=== PATIENT | female | born 1940 | race Caucasian/White ===

== ENCOUNTER → 2017-07-30 | Outpatient (CLI) | payer MEDICARE, OTHER ==
[~2017-07-30] MED LIST: CLARITIN10 MG PO; COMPAZINE10 MG PO; KLOR-CON 1010 MEQ PO; LOSARTAN-HCTZ1 EAC1 PO; NICOTINE TRANSD14 M1 TRANSDERM; ONDANSETRON HCL4 M2 PO; XARELTO15 MG PO; ZYPREXA 10 MG T10 MG PO
== END ==
LOC: M.RAD 13:42
DX: Z12.31 Encounter for screening mammogram for malignant neoplasm of breast (principal); N63.42 Unspecified lump in left breast, subareolar; N63.20 Unspecified lump in the left breast, unspecified quadrant

== ENCOUNTER → 2017-07-31 | Outpatient (CLI) | payer MEDICARE, OTHER | END | disposition home or self-care (01) | LOC: M.ULTRA 12:47 | DX: C50.912 Malignant neoplasm of unspecified site of left female breast (principal); R92.1 Mammographic calcification found on diagnostic imaging of breast; I10 Essential (primary) hypertension; Z98.49 Cataract extraction status, unspecified eye; Z87.19 Personal history of other diseases of the digestive system; Z79.899 Other long term (current) drug therapy; Z98.890 Other specified postprocedural states ==

== ENCOUNTER → 2017-08-08 | Outpatient (CLI) | payer MEDICARE, OTHER ==
--- NOTE | 2017-08-23 23:16 | CON ---
[address] [address] CONSULTATION Name: ALEM NAVARRO Room: [facility]#: [id number] Admission: 08/08/17 Attend Phys: Calixto Workman MD Discharge: Date of : 42 Report #: [id number] THIS REPORT FOR: //name// CC: Indra Juárez DO Stanton Ferrera DO Karen Connors DO Calixto Potter MD DATE OF CONSULTATION: 08/08/2017 [facility] phone: [phone] REFERRING PHYSICIANS: 1. Stanton Ferrera MD 2. Sheila Potter MD 3. Karen Connors DO 4. 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 HISTORY OF PRESENT ILLNESS: Over the last 2-3 months, the patient was feeling a palpable mass around the 12 o'clock position of the left breast. Her last mammogram, prior to feeling the breast mass, was many years ago. She denied having any nipple discharge. She had a bilateral mammogram on 07/30/2017 which revealed an ovoid density in the superior central aspect of the left breast and she had some small benign appearing nodular opacities in the upper outer right breast. There was nothing to suggest a malignancy in the right breast, but she did have an irregular mass density in the superior central left breast. She then ended up having an ultrasound of the left breast on 07/30/2017 which revealed a hypoechoic mass measuring about 1.3 cm x 1.9 cm x 2.2 cm in the left breast. She ended up having a biopsy of that mass on 07/31/2017 and that revealed an infiltrating ductal carcinoma, which was high grade. It spanned 1.1 cm. It was estrogen receptor negative, progesterone receptor negative and HER2/marie negative. She presents to discuss treatment options. PAST MEDICAL HISTORY AND PAST SURGICAL HISTORY: Includes hypertension. She had cataract repair. She has a history of hemorrhoids. MEDICATIONS: Losartan. ALLERGIES: PENICILLIN. FAMILY HISTORY: [place] [address] CONSULTATION Name: LACHOMICHEALALEM Ocampo Carol Room: [facility]#: [id number] Admission: 08/08/17 Attend Phys: Calixto Workman MD Discharge: Date of : 42 Report #: [id number] SOCIAL HISTORY: The patient is retired. She is . She has 2 daughters and 1 son. Ethanol: she says she occasionally drinks alcohol containing beverages. Cigarettes: The patient smoked 1 pack per day for about 60 years. REVIEW OF SYSTEMS: GENERAL: The patient denied having any fevers or chills. SKIN: The patient denied having color changes or itching. LYMPH NODES: The patient denied having enlarged or painful glands in the neck. ENDOCRINE: The patient denied having any hot or cold intolerance. HEMATOLOGY/IMMUNOLOGY: The patient denied having any anemia or recent bleeding. MUSCULOSKELETAL: The patient denied having any arthritis or painful swollen joints. HEAD AND NECK: The patient denied having any headaches, migraines. RESPIRATORY: The patient denied having shortness of breath. CARDIOVASCULAR: The patient denied having palpitations. GASTROINTESTINAL: The patient denied having nausea, vomiting. NEUROLOGIC: The patient denied having focal weakness. PHYSICAL EXAMINATION: With my nurse, Bel Whaley, present: VITAL SIGNS: Height: 5 feet 5 inches. Weight 136.6 pounds. Blood Pressure 143/75. Pulse 73. Respiration 20 Oxygen saturation 96% on room air. GENERAL: The patient was alert, oriented, in no acute distress. EYES: Pupils were equal, round, reactive to light and accommodation. Extraocular movements were intact. MOUTH: Had no visible lesions. HEART: Had a regular rate and rhythm without murmur. LUNGS: were clear to auscultation. BREASTS: Left breast had a palpable mass at the 12 o'clock position measuring about 2.5 cm. x 2.2 cm x 1.5 cm. HEART: Had a regular rate and rhythm without murmur. LUNGS: were clear to auscultation. ABDOMEN: Not tender. Spleen was not palpable. Liver was at the costal margin. EXTREMITIES: Had no clubbing, cyanosis or edema. NEUROLOGIC: Cranial nerves II to XII were intact. Sensation was intact. She had 4/5 strength in her extremities. ASSESSMENT AND PLAN: The patient has findings consistent with at least an early stage breast cancer. The patient was told that her local treatment options include breast conservation therapy versus mastectomy. This is based on the NSABP B-06 study which randomized patients with early breast cancer between total mastectomy versus lumpectomy alone versus lumpectomy and radiation therapy. At 20 years followup, there was no significant difference in overall survival. The addition of radiation therapy to lumpectomy, reduced the local failure rate from 39% to 14%. The patient has an appointment with her medical oncologist, Dr. Potter, on 08/14/2017. The patient says she has an appointment in the near future with her surgeon as well. I went ahead and ordered lab work in about a month and I asked the patient to follow up with me afterwards. I told her that radiation therapy in this case would be a standard part of breast conservation therapy. I told her, that if she has a mastectomy, then radiation therapy is used to treat patient's [place] [address] CONSULTATION Name: ALEM NAVARRO Room: [facility]#: [id number] Admission: 08/08/17 Attend Phys: Calixto Workman MD Discharge: Date of : 42 Report #: [id number] local recurrence such as those that have axillary lymph nodes involved with breast cancer or have positive margins or have tumors that are greater than 5 cm on the pathologic sample. So the risks, benefits and logistics of radiation therapy were explained to the patient in detail. Right now, she is leaning towards breast conservation therapy if she is still a candidate by the time she is evaluated by the surgeon. she has lab work ordered in about a month and she was asked to schedule a follow up appointment with me afterwards. Thank you very much for this consult. <ELECTRONICALLY SIGNED> By: Calixto Workman MD 08/23/17 2316 1133 1700Dajody Workman MD /nt
== END ==
LOC: M.RTH 05:41
DX: C50.912 Malignant neoplasm of unspecified site of left female breast (principal); I10 Essential (primary) hypertension; F17.210 Nicotine dependence, cigarettes, uncomplicated

== ENCOUNTER → 2017-08-13 | Outpatient (CLI) | payer MEDICARE, OTHER ==
[2017-08-13 08:10] LABS: CREATININE 0.8 mg/dL (0.6-1.3)
== END ==
LOC: M.LAB 07:29 → M.MRI 08:30 → M.LAB 13:30
PROVIDERS: Surgery
DX: R92.8 Other abnormal and inconclusive findings on diagnostic imaging of breast (principal)

== ENCOUNTER → 2017-08-19 | Outpatient (CLI) | payer MEDICARE, OTHER | LOC: M.LAB 01:42 | DX: R35.8 Other polyuria (principal) ==

== ENCOUNTER → 2017-08-19 | Outpatient (CLI) | payer MEDICARE, OTHER ==
--- NOTE | 2017-08-19 12:46 | 2DMMODE ---
[place] [address] 2 D/M-MODE ECHOCARDIOGRAM Name: ALEM NAVARRO Room: [facility]#: [id number] Admission: 08/19/17 Attend Phys: Sheila Potter MD Discharge: Date of : 42 Date of Service: 08/19/17 1246 Report #: [id number] THIS REPORT FOR: //name// APPROVED REPORT Study performed: 08/19/2017 09:54:27 EXAM: Comprehensive 2D, Doppler, and color-flow Echocardiogram Patient Location: Out-Patient BSA: 1.67 HR: 67 bpm BP: 130/82 mmHg Other Information Study Quality: Good Indications Pre-Chemo 2D Dimensions LVEF(%): 64.24 (>50%) IVSd: 10.33 (7-11mm) LVOT Diam: 21.84 (18-24mm) LVDd: 38.69 mm PWd: 7.70 (7-11mm) Ascending Ao: 30.85 (22-36mm) LVDs: 25.36 (25-40mm) Aortic Root: 31.71 mm Barillas's LVEF: 64.24 % Volumes Left Atrial Volume (Systole) LA ESV Index: 29.20 mL/m2 Aortic Valve AoV Peak Song.: 1.12 m/s AO Peak Gr.: 5.06 mmHg LVOT Max P.80 mmHg AO Mean Gr.: 3.02 mmHg LVOT Mean P.39 mmHg LVOT Max V: 0.84 m/s AO V2 VTI: 23.17 cm LVOT Mean V: 0.54 m/s MEE (VTI): 3.12 cm2 LVOT V1 VTI: 19.26 cm Mitral Valve E/A Ratio: 0.60 MV Decel. Time: 482.76 ms MV E Max Song.: 0.49 m/[place] [address] 2 D/M-MODE ECHOCARDIOGRAM Name: ALEM NAVARRO Room: [facility]#: [id number] Admission: 08/19/17 Attend Phys: Sheila Potter MD Discharge: Date of : 42 Date of Service: 08/19/17 1246 Report #: [id number] MV PHT: 140.00 ms MVA (PHT): 1.57 cm2 TDI E/Lateral E': 5.44 E/Medial E': 6.13 Medial E' Song.: 0.08 m/s Lateral E' Song.: 0.09 m/s Pulmonary Valve PV Peak Song.: 0.71 m/s PV Peak Gr.: 2.00 mmHg Tricuspid Valve RAP Estimate: 5.00 mmHg TR Peak Gr.: 24.87 mmHg RVSP: 29.87 mmHg PA Pressure: 29.87 mmHg Left Ventricle The left ventricle is normal size. There is normal LV segmental wall motion. There is normal left ventricular wall thickness. Left ventricular systolic function is normal. The left ventricular ejection fraction is within the normal range. LVEF is 60-65%. Grade I - abnormal relaxation pattern. Right Ventricle The right ventricle is normal size. The right ventricular systolic function is normal. Atria The left atrium size is normal. The right atrium size is normal. Aortic Valve Mild aortic valve sclerosis. No aortic regurgitation is present. There is no aortic valvular stenosis. Mitral Valve The mitral valve is normal in structure. Trace mitral regurgitation. No evidence of mitral valve stenosis. Tricuspid Valve The tricuspid valve is normal in structure. Mild tricuspid regurgitation. Pulmonic Valve The pulmonary valve is normal in structure. Mild [place] [address] 2 D/M-MODE ECHOCARDIOGRAM Name: ALEM NAVARRO Room: [facility]#: [id number] Admission: 08/19/17 Attend Phys: Sheila Potter MD Discharge: Date of : 42 Date of Service: 08/19/17 1246 Report #: [id number] Great Vessels The aortic root is normal in size. IVC is normal in size and collapses with >50% inspiration Pericardium There is no pericardial effusion. <Conclusion> The left ventricle is normal size. There is normal left ventricular wall thickness. Left ventricular systolic function is normal. The left ventricular ejection fraction is within the normal range. LVEF is 60-65%. Grade I - abnormal relaxation pattern. The right ventricle is normal size. The left atrium size is normal. Mild aortic valve sclerosis. No aortic regurgitation is present. There is no aortic valvular stenosis. The mitral valve is normal in structure. The tricuspid valve is normal in structure. Mild tricuspid regurgitation. IVC is normal in size and collapses with >50% inspiration There is no pericardial effusion. There is normal LV segmental wall motion. <ELECTRONICALLY SIGNED> By: Alphonse Ramirez MD, FACC 08/19/17 1246 [id number] Alphonse Ramirez MD, FACC /INF
== END ==
LOC: M.CRD 09:39
DX: C50.919 Malignant neoplasm of unspecified site of unspecified female breast (principal); Z17.1 Estrogen receptor negative status [ER-]

== ENCOUNTER 2017-09-03 16:55 | Inpatient (IN) | payer MEDICARE, OTHER ==
[~2017-09-03] VITALS: Ht 165.1 cm; Wt 65.3 kg
[2017-09-03 17:02] VITALS: BP 136/55
[2017-09-03] MEDS ORDERED: KLOR-CON 1010 MEQ PO (17:09)
[2017-09-03] MEDS ORDERED: ONDANSETRON HCL4 M2 PO (17:09)
[2017-09-03] MEDS ORDERED: LOSARTAN-HCTZ1 EAC1 PO (17:09)
[2017-09-03] MEDS ORDERED: COMPAZINE10 MG PO (17:11)
[2017-09-03] MEDS ORDERED: ZYPREXA 10 MG T10 MG PO (17:11)
[2017-09-03] MEDS ORDERED: CLARITIN10 MG PO (17:12)
[2017-09-03 17:38] LABS: HEMATOCRIT 32.9 % (37.0-47.0); HEMOGLOBIN 11.7 gm/dL (12.0-15.0); MCH 32.1 pg (26.0-34.0); MCHC 35.5 g/dL (28.0-37.0); MCV 90.6 fL (80.0-100.0); MPV 7.5 fl. (7.2-11.1); NUCLEATED RBCS 0 /100WBC; PLATELET COUNT* 187 thou/uL (150-400); RBC 3.64 mil/uL (4.20-5.00); RDW-CV 12.1 % (10.5-14.5)
[2017-09-03 17:46] LABS: APTT 31.4 Seconds (25.0-31.3)
[2017-09-03 17:47] LABS: WBC 1.3 thou/uL (4.0-11.0)
[2017-09-03 17:55] LABS: ANION GAP 7 mmol/L (7-16); BUN 12 mg/dL (7-18); CALCIUM 7.8 mg/dL (8.5-10.1); CHLORIDE 87 mmol/L (98-107); CO2 27 mmol/L (21-32); CREATININE 0.6 mg/dL (0.6-1.3); GLUCOSE 187 mg/dL (70-99); SODIUM 121 mmol/L (136-145)
[2017-09-03 18:06] LABS: ALBUMIN 2.9 g/dL (3.4-5.0); ALKALINE PHOSPHATASE 74 U/L (46-116); NT-PRO BRAIN NAT PEPTIDE 547 pg/mL (<300); SGOT 11 U/L (15-37); SGPT 15 U/L (30-65); TOTAL BILIRUBIN 0.5 mg/dL (<0.1-1.0); TOTAL PROTEIN 6.1 g/dL (6.4-8.2); TROPONIN-I LEVEL <0.06 ng/mL (<0.06)
[2017-09-03 18:25] LABS: ABSOLUTE LYMPHOCYTES 0.1 thou/uL (0.8-5.3); ABSOLUTE MONOCYTES 0.2 thou/uL (0.0-1.2)
[2017-09-03 18:26] LABS: PLATELET ESTIMATE ADEQUATE
[2017-09-03 19:51] LABS: URINE BILIRUBIN NEGATIVE (Negative); URINE BLOOD 2+ (Negative); URINE CLARITY CLEAR; URINE COLOR YELLOW; URINE GLUCOSE-RANDOM NEGATIVE (Negative); URINE KETONES NEGATIVE (Negative); URINE LEUKOCYTES-REFLEX NEGATIVE (Negative); URINE PROTEIN NEGATIVE (Negative); URINE SPECIFIC GRAVITY <= 1.005 (1.005-1.030); URINE UROBILINOGEN 0.2 E.U./dl (0.2-1.0)
[2017-09-03 19:59] LABS: URINE NITRITE-REFLEX POSITIVE (Negative)
[2017-09-03 20:11] LABS: SQUAMOUS 4-10 Moderate /LPF (0-3)
[2017-09-03 20:12] LABS: BACTERIA-REFLEX >30 Many /HPF (None Seen); CASTS None Seen /LPF (None Seen); CRYSTALS None Seen /LPF (None Seen); URINE RBC 3-10 Few /HPF (0-2); URINE WBC-REFLEX 0-5 Rare /HPF (0-5)
[2017-09-03 20:14] VITALS: BP 89/56
[2017-09-03 20:30] VITALS: BP 98/65
[2017-09-04] VITALS (7 sets, daily range): BP systolic 83–122; BP diastolic 45–76
--- NOTE | 2017-09-04 06:53 | NUR ---
PATIENT RESTED IN BED, NO ACUTE CHANGES. PATIENT DID NOT SHOW SIGNS OF DISTRESS. PATIENT STATES SHE DOES NOT HAVE ANY PAIN, ALSO DECREASE DIARRHEA. DOCTOR NOTIFIED OF SOFT BLOOD PRESSURES, AND ULTRA SOUND, LOVENOX ORDERED. FALL PRECAUTIONS IN PLACE, BED ALARM ON, CALL LIGHT WITHIN REACH, HOURLY ROUNDING OBSERVED.
--- NOTE | 2017-09-04 08:23 | NUR ---
CALL TO DOCTOR SELINA REGARDING ISOLATION ORDER, NO NEW ORDERS.
--- NOTE | 2017-09-04 09:59 | NUR ---
ASSUMED CARE OF PT THIS AM AROUND 0715- [employer] DISPATCHER IN PLACE ORDERED, TRACING SR- UPON ASSESSMENT PT NOTED TO BE SITTING UP ON SIDE OF BED EATING BREAKFAST, GOOD PO INTAKE NOTED- PT A&O X4- CONTINENT OF BOWEL AND BLADDER- SBA WITH TRANSFERS FOR SAFETY- LCTA, RESP EVEN AND UN-LABORED- VSS, O2 SAT 97% ON RA- ABDOMEN SOFT/ROUND/NON-TENDER, BS X4 QUADS- PT REPORTS LAST BM 09/03/17- TRACE EDEMA NOTED TO BLE- IV NOTED TO RIGHT AC INTACT, IVF INFUSING PRESCIBED- IV ABT GIVEN THIS AM PRESCIBED, NO ADVERSE REACTIONS NOTED-K+ CURRENLTY BEING REPLACED PER PROTOCOL- PT DENIES ANY C/O PAIN/DISCOMFORT AT THIS TIME- CALL LIGHT AND PERSONAL BELONGINGS WITH IN REACH- HOURLY ROUNDS IN PLACE R/T SAFETY/NEEDS- ALL NEEDS MET AT THIS TIME- WCTM
--- NOTE | 2017-09-04 11:00 | NUR ---
MET WITH PT TO DISCUSS HOME SITUATION/DC PLANNING. PT LIVES WITH SPOUSE. STATES SHE JUST STARTED CHEMO AND HAD HER FIRST [place] WEEK BEFORE LAST, SEEMS DISCOURAGED WITH SIDE EFFECTS AND NOW HOSPITAL STAY, STATES 'THIS IS THE FIRST THING I'VE EVER HAD.' SUPPORT GIVEN. PT STATES SHE IS INDEPENDENT AND NORMALLY ACTIVE. SPOUSE IS DPOA. WILL FOLLOW
[2017-09-04 16:51] LABS: POTASSIUM 3.4 mmol/L (3.5-5.1)
--- NOTE | 2017-09-04 16:57 | NUR ---
PT ROSEANNA RESTING IN BED, [facility] ART HISTORIAN IN PLACE ORDERED, TRACING SR- IV TO LEFT AC INTACT, IVF INFUSING PRESCIBED- GOOD PO INTAKE NOTED THIS SHIFT WITH MEALS- ID CONSULTED THIS SHIFT R/T FEVERS- ORDERS FOR ZOFRAN OBTAINED PER DR.BANDAY COKER GIVEN PER PT REQUEST R/T NAUSEA THIS SHIFT AT 1305, PT REPORTS MEDICATION TO BE EFFECTIVE- K+ REPLACED PER PROTOCOL, REDRAW NOTED AT 3.4- NA+ NOTED WITH IMPROVEMENT TO 130 THIS SHIFT-PT DENIES ANY C/O PAIN/DISCOMFORT AT THIS TIME- ALL NEEDS MET AT THIS TIME-WCTM
[2017-09-05] VITALS: BP 105/58
[2017-09-05 04:00] VITALS: BP 105/58
--- NOTE | 2017-09-05 05:25 | NUR ---
PATIENT RESTED IN BED, NO ACUTE CHAGNES. PATIENT DID NOT SHOW SIGNS OF DISTRESS. NO COMPLAINTS OF NAUSEA. FALL PRECAUTIONS IN PLACE, BED ALARM ON, CALL LIGHT WITH IN REACH, HOURLY ROUNDING OBSERVED.
[2017-09-05 05:29] LABS: HEMATOCRIT 34.2 % (37.0-47.0); HEMOGLOBIN 12.1 gm/dL (12.0-15.0); MCH 32.3 pg (26.0-34.0); MCHC 35.3 g/dL (28.0-37.0); MCV 91.4 fL (80.0-100.0); MPV 8.1 fl. (7.2-11.1); RBC 3.75 mil/uL (4.20-5.00); RDW-CV 12.3 % (10.5-14.5)
[2017-09-05 05:44] LABS: CALCIUM 7.9 mg/dL (8.5-10.1); CREATININE 0.6 mg/dL (0.6-1.3)
--- NOTE | 2017-09-05 06:43 | CON ---
[address] [address] CONSULTATION Name: ALEM NAVARRO Room: [address] IN .R.#: [id number] Admission: 09/03/17 Attend Phys: Alessandra Calvert Discharge: Date of : 42 Report #: [id number] THIS REPORT FOR: //name// CC: Stanton Witt DATE OF SERVICE: 09/04/2017 ATTENDING PHYSICIAN: Dr. Witt. REASON FOR EVALUATION: Neutropenia and diarrhea. HISTORY OF PRESENT ILLNESS: Chart reviewed, patient examined. This is a 77-year-old with history of breast cancer. She has been on chemotherapy who had experienced what she felt was constipation as an adverse drug effect, was given medicines to reverse it, experienced diarrhea and it was quite marked and persisted. There is no evidence of associated abdominal pain or nausea nor has she had any fevers. She denies any pulmonary related complaints. On evaluation, she was found to have neutropenia. She was admitted. Chest x-ray was otherwise unrevealing. Lactic acid of 1.6. CT of abdomen and pelvis, there has been multiple renal masses likely simple cysts and possible early pancreatitis. Urinalysis, 0-5 white cells. Blood cultures collected at the time of admission are sterile thus far. She was empirically placed on cefepime and metronidazole. She is not overtly ill at this point and not encephalopathic. ALLERGIES: LISTED TO PENICILLINS. MEDICINES: Include above-noted antibiotics, enoxaparin and nicotine patch. PAST MEDICAL HISTORY: As described above, history of hypertension, previous partial hysterectomy and hemorrhoids. SOCIAL HISTORY: Smokes [id number] history. No ethanol and no illicit drug use. FAMILY HISTORY: Noncontributory. REVIEW OF SYSTEMS: As above. PHYSICAL EXAMINATION: GENERAL: She is pleasant, alert and cooperative. She does appear chronically ill, although not acutely distressed. VITAL SIGNS: Temperature 98.1, pulse 78, respirations 16 and blood pressure is 118/73. SKIN: Warm, dry [place] [address] CONSULTATION Name: ALEM NAVARRO Room: [address] IN [facility]#: [id number] Admission: 09/03/17 Attend Phys: Alessandra Calvert Discharge: Date of : 42 Report #: [id number] HEENT: Unremarkable. NECK: Supple. LUNGS: Somewhat diminished, otherwise clear. HEART: Regular. I do not appreciate any murmur. ABDOMEN: Mildly distended, although it is soft. There are no peritoneal signs. GENITOURINARY: Deferred. RECTAL: Deferred. LABORATORY DATA: As described above. Blood cultures are sterile thus far. Urinalysis 0-5 white cells and greater than [address] abdomen and pelvis as noted. CBC: White count of 1.3 with an ANC of 1000. Sodium is low at 121 that is actually up from, I believe, 115, potassium is 3.0, chloride 87, bicarbonate is 27, BUN and creatinine 12 and 0.6 and glucose of 187. Albumin 2.9 and total protein 6.1. Liver functions are unremarkable. Venous Dopplers showed some short segment of left greater saphenous vein thrombosis. ASSESSMENT: Neutropenia associated with chemotherapy and now diarrhea may well be a response to aggressive efforts to reverse constipation. At this point, she does not appear toxic. I think it is reasonable to continue combination empiric therapy at this point. As the white count increases, may further define any sort of focal inflammatory site perhaps pyogenic infection. At this point, I would monitor expectantly, particular concerned about pneumonitis, gastrointestinal related or she has a port in place as well. <ELECTRONICALLY SIGNED> By: Damien Andino MD 09/05/17 0643 [id number] [id number] Andino MD /nt
[2017-09-05 07:58] VITALS: BP 119/73
--- NOTE | 2017-09-05 09:30 | NUR ---
ASSUMED CARE OF PT THIS AM AROUND 0715- AIRLINE RESERVATION AGENT IN PLACE ORDERED, TRACING SR- UPON ASSESSMENT PT NOTED TO BE RESTING IN BED, WATCHING TV- PT A&O X4- CONTINENT OF BOWEL AND BLADDER- SBA WITH TRANSFERS FOR PT SAFETY- LCTA, DIMINISHED IN BASES- RESP EVEN AND [id number], O2 SAT 96% ON RA-ABDOMEN SOFT/ROUND/NON-TENDER, BS X4 QUADS- PT REPORTED LAST BM X3 DAYS AGO, BUT PASSING GAS- GOOD PO INTAKE NOTED THIS AM WITH BREAKFAST- IV NOTED TO LEFT FA INTACT, IVF INFUSING PRESCIBED- IV CEFEPIME AND FLAGYL D/CD THIS AM PER - BLOOD CULTURES REMAIN NEGATIVE- PT DENIES ANY C/O PAIN/DISCOMFORT AT THIS TIME- CALL LIGHT AND PERSONAL BELONGINGS WITH IN REACH- HOURLY ROUNDS IN PLACE R/T SAFETY/NEEDS- ALL NEEDS MET AT THIS TIME-WCTM
[2017-09-05 11:35] VITALS: BP 117/77
--- NOTE | 2017-09-05 11:59 | CON ---
[address] [address] CONSULTATION Name: ALEM NAVARRO Room: [address] IN .R.#: [id number] Admission: 09/03/17 Attend Phys: Alessandra Calvert Discharge: Date of : 42 Report #: [id number] THIS REPORT FOR: //name// CC: Stanton Witt DATE OF SERVICE: 09/04/2017 REASON FOR CONSULTATION: Breast cancer, hyponatremia, neutropenia. REQUESTING PHYSICIAN: Ariana Witt MD HISTORY OF PRESENT ILLNESS: The patient is a very pleasant 77-year-old woman who is receiving neoadjuvant chemotherapy for triple negative breast cancer. She received first cycle of Adriamycin and Cytoxan 10 days ago. She developed severe constipation. She did not have bowel movements for 5 days and said that she uses many laxatives, enema and milk of magnesia. She started having diarrhea. [facility] with the above-mentioned complaints. She had labs done, which showed severe hyponatremia with sodium of 115. She was admitted to the hospital. She did have diarrhea after laxatives which lasted her until admission. Oncology consultation requested. She is doing better today. She says diarrhea has stopped. She does not have fevers or chills, although she is on antibiotics for neutropenia. She had the last Neulasta day #2 of chemotherapy. She has complaints of left lower extremity swelling. Doppler ultrasound was done, which showed DVT. She does not have nausea or vomiting. PAST MEDICAL HISTORY: Significant for breast cancer. Otherwise, she is healthy. SOCIAL HISTORY: Does not smoke. Her performance status is very good. ECOG 0. FAMILY HISTORY: Disregard. REVIEW OF SYSTEMS: CONSTITUTIONAL: No recent weight loss. HEENT: No mouth sores. CARDIOVASCULAR: No chest pain or palpitation. RESPIRATORY: Negative. GASTROINTESTINAL: See above. GENITOURINARY: No dysuria or frequency. MUSCULOSKELETAL: See above. NEUROLOGIC: Negative. MENTAL STATUS: Negative. PHYSICAL EXAMINATION: [place] [address] CONSULTATION Name: ALEM NAVARRO Room: [address]#: [id number] Admission: 09/03/17 Attend Phys: Alessandra Calvert Discharge: Date of : 42 Report #: [id number] GENERAL: Reveals a well-developed, well-nourished female, not in acute distress. VITAL SIGNS: Blood pressure 106/62, heart rate is 77, temperature 98.3, respirations 18. HEENT EXAMINATION: Does not reveal thrush. HEART: Normal S1, S2. LUNGS: Clear. ABDOMEN: Soft. No organomegaly. EXTREMITIES: Shows mild left lower extremity edema. MENTAL STATUS: Alert, oriented x 3. LYMPHATICS: There is no supraclavicular lymphadenopathy. LABORATORY DATA: White count 1.3, hemoglobin 11.7, platelets 187, neutrophils of 76%, monocytes 16%. Sodium 121, potassium is 2.0, BUN 12, creatinine 0.6. Ultrasound shows DVT in the left lower extremity. There is a clot in a short segment of greater saphenous vein. CT of the abdomen shows multiple kidney masses consistent with cysts. There is peripancreatic fat stranding, possibly related to pancreatitis. ASSESSMENT AND PLAN: 1. Diarrhea secondary to laxative, gastrogenic resolved. 2. Neutropenia. The patient is on Cefepime. Checked CBC tomorrow morning. If neutropenia resolved, recommend to discontinue antibiotics. 3. Hyponatremia, most likely secondary to diarrhea. Agree with IV hydration. 4. Deep venous thrombosis. Consider on Xarelto. 5. Peripancreatic stranding. I do not think this is any clinical significance. I would not pursue further workup for this. 6. Breast cancer. Day #10 of cycle of chemotherapy. We will continue chemotherapy without any changes at this point. Thank you very much for allowing me to participate in the care of this patient. <ELECTRONICALLY SIGNED> By: Sheila Potter MD 09/05/17 1159 1628 [id number] Potter MD /nt
--- NOTE | 2017-09-05 12:31 | EKG ---
[place] [address] ELECTROCARDIOGRAM REPORT Name: YANFREDDYALEM Ocampo Room: [address] IN [facility].#: [id number] Admission: 09/03/17 Attend Phys: Alessandra Calvert Discharge: Date of : 42 Report #: [id number] THIS REPORT FOR: //name// [facility] ED Test Date: 2017-09-03 Test Time: 17:07:12 Pat Name: ALEM NAVARRO Department: Room: Gender: Health Care Administrator: Reynold BOONE : 1940 Requested By: Fernando Delarosa Order Number: [id number] MD: Sha Choi Measurements Intervals [place] Rate: 89 P: -27 IA: 173 QRS: 19 QRSD: 87 T: 26 QT: 367 QTc: 447 Interpretive Statements Sinus rhythm No previous ECG available for comparison Electronically Signed On 09-05-2017 12:31:23 CDT by Sha Choi [email or web address] <ELECTRONICALLY SIGNED> By: Sha Choi MD, [facility] 09/05/17 1231 06 06 Sha Choi MD, FAC /EPI
[2017-09-05] MEDS ORDERED: XARELTO15 MG PO (13:06)
[2017-09-05 14:03] VITALS: BP 117/77
--- NOTE | 2017-09-05 14:25 | NUR ---
CONTINUE TO FOLLOW, MET WITH PT AND DTR. PT HOPEFUL TO GO HOME, STATES FEELING MUCH IMPROVED TODAY. GAVE DISCOUNT NO COPAY CARD FOR 1ST MONTH OF XARELTO. PT DECLINES ANY OTHER F/U, ANXIOUS TO GO HOME
[2017-09-05] MEDS ORDERED: NICOTINE TRANSD14 M1 TRANSDERM (15:28)
--- NOTE | 2017-09-05 15:49 | NUR ---
ORDERS RECIEVED FOR OKAY TO D/C HOME THIS SHIFT PER WITH FOLLOW UP'S DIRECTED WITH ONCOLOGY AND PCP-IV TO LEFT FA D/C'D ALONG WITH PROCESS MAINTENANCE TECHNICIAN PRIOR TO D/C- D/C TEACHING/EDUCATION GIVEN TO PT PRIOR TO D/C WITH ALL QUESTIONS AND CONCERNS ADDRESSED- WRITTEN SCRIPTS WITH WRITTEN EDUCATION PROVIDED TO PT PRIOR TO D/C- BELONGINGS PACKED AND ACCOUNTED FOR PER PT- PT ESCORTED PER TECH VIA W/C WITH BELONGINGS; AT SIDE TO VEHICLE- NO PROBLEMS TO NOTE AT TIME OF D/C OF 1550
== END 2017-09-05 15:50 | disposition home or self-care (01) | DRG 872 ==
LOC: M.ERS 16:55 → M.2W 18:22 → M.TBA-ER 18:22 → M.2W 19:52
PROVIDERS: Family Medicine; ADMIT Internal Medicine
DX: A41.9 Sepsis, unspecified organism (principal); I82.4Y2 Acute embolism and thrombosis of unspecified deep veins of left proximal lower extremity; K52.1 Toxic gastroenteritis and colitis; E87.1 Hypo-osmolality and hyponatremia; L03.116 Cellulitis of left lower limb; N39.0 Urinary tract infection, site not specified; E44.1 Mild protein-calorie malnutrition; T47.4X5A Adverse effect of other laxatives, initial encounter; I10 Essential (primary) hypertension; F17.210 Nicotine dependence, cigarettes, uncomplicated; D70.1 Agranulocytosis secondary to cancer chemotherapy; E87.6 Hypokalemia; E83.42 Hypomagnesemia; E86.0 Dehydration; T45.1X5A Adverse effect of antineoplastic and immunosuppressive drugs, initial encounter; Y92.89 Other specified places as the place of occurrence of the external cause; Z85.3 Personal history of malignant neoplasm of breast; Z92.21 Personal history of antineoplastic chemotherapy; Z90.710 Acquired absence of both cervix and uterus; Z79.899 Other long term (current) drug therapy; Z88.0 Allergy status to penicillin; Z88.5 Allergy status to narcotic agent

== ENCOUNTER → 2018-02-13 | Day surgery (SDC) | payer MEDICARE, OTHER ==
[~2018-02-13] MED LIST changes: +NORCO 5-325 TA1 EACH PO
[2018-02-13 09:13] LABS: HEMOGLOBIN 12.1 gm/dL (12.0-15.0); MCH 31.6 pg (26.0-34.0); MCHC 33.7 g/dL (28.0-37.0); MCV 93.7 fL (80.0-100.0); MPV 6.7 fl. (7.2-11.1); RBC 3.84 mil/uL (4.20-5.00); RDW-CV 16.7 % (10.5-14.5); WBC 10.5 thou/uL (4.0-11.0)
[2018-02-13 09:32] LABS: CALCIUM 8.7 mg/dL (8.5-10.1); CREATININE 0.6 mg/dL (0.6-1.3); POTASSIUM 3.8 mmol/L (3.5-5.1)
[2018-02-13 09:36] LABS: ALBUMIN 3.5 g/dL (3.4-5.0); TOTAL BILIRUBIN 0.6 mg/dL (<0.1-1.0); TOTAL PROTEIN 6.9 g/dL (6.4-8.2)
--- NOTE | 2018-02-18 13:09 | PATH ---
[address] [address] PATHOLOGY RPT PROCEDURE Name: ALEM NAVARRO Room: [facility]#: [id number] Admission: 02/13/18 Date of : 42 Discharge: Report #: [id number] Path Case #: [id number] [facility] Accession Number: [id number] . 01 Material submitted: . PART A: LEFT BREAST MASS PART B: SENTINEL LYMPH NODE LEFT PART C: TATE CATH RIGHT . 01 Clinical history: . Malignant neoplasm of unspecified site of left breast . A. Vector margin marker carbajal as follows: Anterior - green, inferior - blue, lateral - orange, medial - yellow, posterior - black, superior - red. . C. Gross only. . 02 Diagnosis: A. Left breast mass: - Breast tissue with evidence of presurgical therapy including nodular fibrosis with focal histiocytic infiltrate and no residual malignancy or atypia. - Medial calcification of blood vessels and luminal calcifications. See comment. . B. Left sentinel lymph node: - One benign lymph node, without evidence of prior lymph node metastasis (no fibrous scarring). . C. Gross diagnosis (right port-a-cath): - Port-A-Cath identified. QTP/02/17/2018 . 02 Comment: Properly controlled keratin AE1/AE3 performed on B1 shows no evidence of metastatic tumor. . This patient received neoadjuvant chemotherapy following a left breast biopsy around 07/31/2017 which showed high-grade ductal carcinoma, triple negative ([id number]). (PAN:shirley/naomi 02/17/2018) . 02 Electronically signed: . Javan Rodriguez MD, Pathologist NPI- [id number] . 01 Gross description: [place] [address] PATHOLOGY RPT PROCEDURE Name: ALEM NAVARRO Carol Room: [facility]#: [id number] Admission: 02/13/18 Date of : 42 Discharge: Report #: [id number] Path Case #: [id number] A. Received in formalin labeled "Alem Navarro, left breast mass" is a previously inked and oriented breast lumpectomy specimen weighing 28 g and measuring 7.0 cm from superior to inferior, 4.8 cm from medial to lateral, and 2.0 cm from anterior to posterior. The specimen is inked as follows: Superior-red, inferior-blue, anterior green, posterior-black, lateral-orange, medial-yellow. The specimen is serially sectioned from superior to inferior into 15 slices. Present within slice 8 is a lewis-white firm mass measuring 0.8 x 0.8 x 0.5 cm. The mass is located to the margins as follows: 3.5 cm to superior, 3.0 cm to inferior, 2.8 cm to lateral, 1.0 cm to medial, 0.8 cm to anterior, and 0.7 cm to posterior. A biopsy clip is not grossly identified. The uninvolved breast parenchyma is yellow-lewis and lobulated with dense white fibrous tissue in the inferior aspect. Also present within the container is a separate unoriented portion of yellow-lewis lobulated breast tissue measuring 2.2 x 1.6 x 1.0 cm. The external surface is inked black. Upon sectioning, the cut surface is yellow-lewis and homogeneous without abnormalities. Tube Bender Hand sections of the specimen are submitted as follows: A1 slice 1, superior margin, perpendicular sections A2-A3 slice 5 A4-A6 slice 6 A7-A8 slice 7 A9-A10 slice 8 A11-A12 slice 9 A13 slice 15, inferior margin, perpendicular sections A14 truck sales representative separate portion of tissue The specimen is removed from the patient at 1122 and placed in formalin at 1133 on February 13, 2018. The specimen is removed from formalin at 1850 on February 15, 2018. . B. Received in formalin labeled "Srikanth Luoice, sentinel lymph node left" is a 1.6 x 1.0 x 0.6 cm pink-lewis lymph node. The specimen is sectioned to reveal a lewis-brown cut surface. The specimen is submitted entirely in cassette B1. ([facility]; 02/15/2018) . C. Received in formalin labeled "Ramon Alem, Portacath right gross only," is a purple plastic Port-A-Cath specimen measuring 2.6 x 2.4 x 1.7 cm in greatest dimensions with attached segment of flexible blue tubing measuring 15 cm in length by 0.3 cm in diameter. The Port-A-Cath specimen displays the text "3474, BARD". Gross photographs are taken. Tissue is not submitted. ([facility]; 02/16/2018) SYC/QAC . 02 Pathologist provided ICD-10: C50.912, N60.32, Z45.2 . 02 CPT . 094963, 501898, 394219, P13044 Specimen Comment: A courtesy copy of this report has been sent to [address] [address] PATHOLOGY RPT PROCEDURE Name: RAMONALEM L Room: [facility]#: [id number] Admission: 02/13/18 Date of : 42 Discharge: Report #: [id number] Path Case #: [id number] Specimen Comment: [phone]. Specimen Comment: Report sent to DR GRAHAM Specimen Comment: A duplicate report has been generated due to demographic updates. Performed at: 01 [facility] [address], [place], [place] [id number] MD Walter Conroy MD Phone: [phone] Performed at: [address] [facility] [address] [place], [place] [id number] MD Javan Rodriguez MD Phone: [phone]
--- NOTE | 2018-03-20 14:45 | OP ---
[address] [address] OPERATIVE REPORT Name: ALEM NAVARRO Room: [facility]#: [id number] Admission: 02/13/18 Attend Phys: Indra Juárez DO Discharge: Date of : 42 Report #: [id number] THIS REPORT FOR: //name// CC: Indra Alvarez MD DATE OF SERVICE: 02/13/2018 PREOPERATIVE DIAGNOSIS: Left breast carcinoma status post neoadjuvant chemotherapy. POSTOPERATIVE DIAGNOSIS: Left breast carcinoma status post neoadjuvant chemotherapy. PROCEDURE: Left breast lumpectomy and left axillary sentinel lymph node biopsy and also Removal of Port-A-Cath. SURGEON: Indra Juárez DO. ELECTRICAL ENGINEERING MANAGER: Dr. Grady Duke. ANESTHESIA: General endotracheal. ESTIMATED BLOOD LOSS: Less than 30 mL. COMPLICATIONS: None. DESCRIPTION OF PROCEDURE: After obtaining proper consents and discussing risks and complications with the patient, she was taken to the Radiology Department where she underwent wire localization of a previously placed clip in the left breast. She also underwent nuclear medicine injection for sentinel lymph node biopsy. She was then taken back to the operating room, laid in the supine position, administered general anesthesia. I injected the periareolar area with Lymphazurin blue dye and then massaged the breast for approximately 5 minutes. She was then prepped and draped in the usual fashion. A timeout was performed. We confirmed the appropriate patient and procedure. Preoperative antibiotics had been given. SCDs were in place. I then made an incision along the patient's upper outer quadrant of the left breast extending from the guidewire laterally. This was carried down through the skin into the subcutaneous tissue using electrocautery for hemostasis. Once within the breast tissue, I used sharp dissection with Metzenbaum scissors to remove an area around the guidewire medially and just under the areola. I identified an area that appeared to be quite firm and we did elect to remove this area as well even though it was well away from the guidewire. Once this was all removed, [place] [address] OPERATIVE REPORT Name: ALEM NAVARRO Room: [facility].#: [id number] Admission: 02/13/18 Attend Phys: Indra Juárez DO Discharge: Date of : 42 Report #: [id number] system to quintin the borders of the lesion. We then sent it to Radiology to confirm that there was indeed the clip within the specimen. While we awaited results of that, I did make an incision in the left axilla at the area of most uptake of the radionuclide, which was identified with the Neoprobe, then carried this through the skin into the subcutaneous tissue all the way down to the axillary fat pad. Once the axillary fat pad was identified, I used blunt and sharp dissection with Metzenbaum scissors to identify the area with most uptake again using the Neoprobe. Once we identified this area, we did remove the lymph node and on a back table a target count was performed, which revealed a very high count. I then checked the axilla again and we did obtain a fairly high reading high up in the axilla and I did explore the axilla and this appeared to be coming from the axillary vein. We spent approximately one hour dissecting around, trying to identify any other lymph nodes. There were no other high uptake areas other than right at the axillary vein. So at this point we elected to stop this portion of the procedure. I then closed both wounds using 3-0 Vicryl suture for the deeper subcutaneous tissues and 4-0 Monocryl were used to close the skin incisions. I then turned my attention to the Port-A-Cath, which had been placed on the right side. We had been asked by Oncology to remove this because it was causing the patient quite a bit of pain and also was starting to erode through the skin because she is quite frail and cachectic. We made an incision over top of the Port-A-Cath and immediately identified the Port-A-Cath just underneath the skin. I then dissected out the catheter tract. The Port-A-Cath and catheter were then removed. The catheter tract was closed using 2-0 Vicryl suture. Subcutaneous tissues were closed using 3-0 Vicryl suture and the skin was closed using 4-0 Monocryl subcuticular stitches. Mastisol, Steri-Strips, sterile OpSite and pressure dressings were placed. The patient tolerated the procedure well and was awakened in the operating room and transported to recovery room in stable condition. <ELECTRONICALLY SIGNED> By: Indra Juárez DO 03/20/18 1445 1418 1433Atai Juárez DO /nt
== END | disposition home or self-care (01) ==
LOC: M.SUR 07:56 → M.NUC 08:30 → M.SUR 08:30 → EDSTATUS 08:30
PROVIDERS: Surgery
DX: N60.32 Fibrosclerosis of left breast (principal); R59.0 Localized enlarged lymph nodes; R92.1 Mammographic calcification found on diagnostic imaging of breast; Z45.2 Encounter for adjustment and management of vascular access device; Z88.0 Allergy status to penicillin; Z88.8 Allergy status to other drugs, medicaments and biological substances; Z79.891 Long term (current) use of opiate analgesic

== ENCOUNTER → 2018-09-01 | Outpatient (CLI) | payer MEDICARE, OTHER | LOC: M.RAD 09:31 | DX: Z12.31 Encounter for screening mammogram for malignant neoplasm of breast (principal) ==

== ENCOUNTER → 2018-09-04 | Outpatient (CLI) | payer MEDICARE, OTHER | LOC: M.ULTRA 09:09 | DX: N63.10 Unspecified lump in the right breast, unspecified quadrant (principal); Z85.3 Personal history of malignant neoplasm of breast; Z92.3 Personal history of irradiation ==

== ENCOUNTER → 2019-08-04 | Outpatient (CLI) | payer MEDICARE, OTHER | LOC: M.RAD 14:20 | DX: C50.812 Malignant neoplasm of overlapping sites of left female breast (principal); Z17.1 Estrogen receptor negative status [ER-] ==

== ENCOUNTER 2020-08-08 08:59 | Observation (INO) | payer MEDICARE, OTHER ==
[~2020-08-08] VITALS: Ht 167.6 cm; Wt 53.7 kg
--- NOTE | ~2020-08-08 | CON ---
[address] [address] CONSULTATION Name: ALEM NAVARRO Room: [address] Didi Houser#: [id number] Admission: 08/08/20 Attend Phys: Marita Azar Discharge: 08/09/20 Date of : 42 Report #: [id number] THIS REPORT FOR: cc: Stanton Ferrera Bradley L. DO Namin, Farid M. MD ~ DOC #: [id number] cc: DO Alexandria Bowers FNP DATE OF CONSULTATION: 08/09/2020 Please note at the time of this dictation, the patient was seen and physically examined by myself. REASON FOR CONSULTATION: Constipation and weight loss. HISTORY OF PRESENT ILLNESS: This is a 80-year-old female who presented to the emergency room with chief complaint of having overall weakness. She stated she had some nausea and weight loss. It was noted on CT that she had a large stool burden in the ascending and descending colon with a [TIME: 01:13]____ noted in the rectum. The patient states that if she does not take something xadf-myk-kzdpbks on a daily basis to help with her bowels, she does not go. However, on Friday, she had to use a little Fleet Enema that gave her a little bit of relief. Otherwise, she only goes, maybe, once or twice a week. Prior to coming in, she had been using some MiraLax to help with that as well. The patient was last seen by us in 2012 when she underwent a colonoscopy that showed four 4-5 mm polyps in the proximal sigmoid colon, distal sigmoid colon, and mid ascending colon. One 15-mm polyp in the ascending colon, two 3-mm polyps noted in the proximal transverse colon. Diverticulosis, polyps. One polyp noted in the distal ascending colon showed a tubulovillous adenoma, 1 polyp in the distal sigmoid colon showed serrated adenoma, the rest of the polyps in the colon showed tubular adenoma or hyperplastic. The patient has not had a repeat colonoscopy since that time. The patient was diagnosed with breast cancer in 2018 in which she underwent surgery and had chemo and radiation at that time. She denies any difficulty swallowing, but having some nausea with no vomiting. ALLERGIES: NARCOTICS, PENICILLIN, AND MORPHINE. MEDICATIONS FROM HOME: Include omeprazole 20 mg daily and Celexa. PAST MEDICAL HISTORY: Breast cancer of the left, hemorrhoids, and hypertension. PAST SURGICAL HISTORY: Showed left mastectomy [place] [address] CONSULTATION Name: ALEM NAVARRO Room: [address] Didi Houser#: [id number] Admission: 08/08/20 Attend Phys: Marita Azar Discharge: 08/09/20 Date of : 42 Report #: [id number] FAMILY HISTORY: Negative for any GI or female cancers. SOCIAL HISTORY: She is a current 1 pack per day smoker. Denies any alcohol or illegal drug use. REVIEW OF SYSTEMS: Twelve-point review of systems is essentially negative except what is mentioned in the HPI. PHYSICAL EXAMINATION: VITAL SIGNS: Temperature 36.6, pulse 65, respirations 18, and blood pressure 167/69. HEART: Regular rate and rhythm. LUNGS: Clear. ABDOMEN: Soft, positive bowel sounds in all 4 quadrants with no masses or tenderness noted. LABORATORY DATA: Hemoglobin is 13.9, white count is 6.8, and platelets 278. Sodium was 123 on admission, she is up to 130. GFR is 119. Total bilirubin 1.1, alk phos 82, ALT 19, AST is 18. Lipase is normal at 131. DIAGNOSTIC DATA: CT scan of the abdomen and pelvis showed very large stool in the rectal vault and a large amount of stool in the ascending and transverse colon with smaller stool over the descending and sigmoid colon regions. No inflammatory issues noted. She does have a cyst versus hemangioma in the liver and cyst noted in the kidneys. IMPRESSION: 1. Constipation. 2. Weight loss. 3. Nausea. 4. History of colon polyps in 2013. 5. History of breast cancer in 2018 with chemo, radiation, and surgery. PLAN: 1. Dulcolax suppository 20 mg now. 2. If no results, tap water enema. 3. Depending on the above results, consider EGD and colonoscopy with her nausea, weight loss, and history of colon polyps in the past, possibly tomorrow. 4. Further recommendations to be made once Dr. Alston sees the patient later today. Thank you for allowing us to participate in this patient's care. Please do not hesitate to call with any questions regarding this consult. [address] [address] CONSULTATION Name: ALEM NAVARRO Room: [address] Didi Houser#: [id number] Admission: 08/08/20 Attend Phys: Marita Azar Discharge: 08/09/20 Date of : 42 Report #: [id number] MD QUINCY Herrera/AUSTYN/MAUREEN By: 075 30Siddhartha Alston MD /nt
[2020-08-08 09:16] VITALS: BP 150/88
[2020-08-08] MEDS ORDERED: CELEXA 20 MG TA20 MG PO (09:19)
[2020-08-08] MEDS ORDERED: OMEPRAZOLE 20 M20 M1 PO (09:19)
[2020-08-08 10:56] LABS: ABSOLUTE LYMPHOCYTES 0.8 thou/uL (0.8-5.3); ABSOLUTE MONOCYTES 0.6 thou/uL (0.0-1.2); ABSOLUTE NEUTROPHILS 5.8 thou/uL (1.6-8.1); BASOPHILS 0.5 %; EOSINOPHILS 0.4 %; HEMOGLOBIN 14.4 gm/dL (12.0-15.0); LYMPHOCYTES 11.4 %; MCH 31.3 pg (26.0-34.0); MCHC 35.1 g/dL (28.0-37.0); MCV 89.2 fL (80.0-100.0); MONOCYTES 7.7 %; MPV 6.8 fl. (7.2-11.1); NUCLEATED RBCS 0 /100WBC; PLATELET COUNT* 292 thou/uL (150-400); RDW-CV 13.4 % (10.5-14.5); WBC 7.3 thou/uL (4.0-11.0)
[2020-08-08 11:05] LABS: CALCIUM 8.5 mg/dL (8.5-10.1); CREATININE 0.6 mg/dL (0.6-1.3); POTASSIUM 3.3 mmol/L (3.5-5.1)
[2020-08-08 11:19] LABS: ALBUMIN 3.7 g/dL (3.4-5.0); TOTAL BILIRUBIN 1.1 mg/dL (<0.1-1.0)
[2020-08-08 11:54] LABS: URINE BILIRUBIN NEGATIVE (Negative); URINE BLOOD 2+ (Negative); URINE CLARITY SL HAZY; URINE COLOR YELLOW; URINE GLUCOSE-RANDOM NEGATIVE (Negative); URINE KETONES NEGATIVE (Negative); URINE LEUKOCYTES-REFLEX NEGATIVE (Negative); URINE NITRITE-REFLEX NEGATIVE (Negative); URINE PROTEIN NEGATIVE (Negative); URINE SPECIFIC GRAVITY 1.015 (1.005-1.030)
[2020-08-08 12:03] LABS: CASTS None Seen /LPF (None Seen); SQUAMOUS 0-3 Few /LPF (0-3); URINE RBC 0-2 Rare /HPF (0-2); URINE WBC-REFLEX 0-5 Rare /HPF (0-5)
[2020-08-08 12:04] LABS: CRYSTALS None Seen /LPF (None Seen)
[2020-08-08 17:17] VITALS: BP 154/83
--- NOTE | 2020-08-08 17:29 | EKG ---
[place] [address] ELECTROCARDIOGRAM REPORT Name: YANFREDDYALEM Ocampo Room: [address] [place] [facility]#: [id number] Admission: 08/08/20 Attend Phys: Manpreet Smith Discharge: Date of : 42 Date of Service: 08/08/20 1014 Report #: [id number] THIS REPORT FOR: //name// [facility] ED Test Date: 2020-08-08 Test Time: 10:14:46 Pat Name: ALEM NAVARRO Department: Room: [facility] Gender: F Hiv/Aids Care Nurse: CD : 1940 Requested By: Krystle East Order Number: [id number] MD: Job Velasquez Measurements Intervals [place] Rate: 69 P: 0 ND: 28 QRS: -15 QRSD: 94 T: -22 QT: 398 QTc: 427 Interpretive Statements Sinus rhythm Short ND interval Left ventricular hypertrophy Nonspecific T abnormalities, inferior leads Compared to ECG 09/03/2017 17:07:12 Short ND interval now present Left ventricular hypertrophy now present T-wave abnormality now present Electronically Signed On 08-08-2020 17:29:36 CDT by Job Velasquez [email or web address] <ELECTRONICALLY SIGNED> By: Job Velasquez MD, [facility] 08/08/20 1729 1014 1014 Job Velasquez MD, [facility] /EPI
[2020-08-08 17:43] VITALS: BP 147/84
[2020-08-08 20:00] VITALS: BP 142/72
[2020-08-09 00:09] VITALS: BP 128/74
[2020-08-09 03:50] VITALS: BP 163/78
[2020-08-09 05:54] LABS: ABSOLUTE BASOPHILS 0.1 thou/uL (0.0-0.2); ABSOLUTE EOSINOPHILS 0.1 thou/uL (0.0-0.7); ABSOLUTE LYMPHOCYTES 0.9 thou/uL (0.8-5.3); ABSOLUTE MONOCYTES 0.6 thou/uL (0.0-1.2); ABSOLUTE NEUTROPHILS 5.2 thou/uL (1.6-8.1); BASOPHILS 1.1 %; EOSINOPHILS 0.8 %; HEMATOCRIT 39.9 % (37.0-47.0); HEMOGLOBIN 13.9 gm/dL (12.0-15.0); LYMPHOCYTES 13.5 %; MCH 31.3 pg (26.0-34.0); MCV 89.4 fL (80.0-100.0); MONOCYTES 8.4 %; MPV 7.1 fl. (7.2-11.1); NUCLEATED RBCS 0 /100WBC; PLATELET COUNT* 278 thou/uL (150-400); POLYS 76.2 %; RBC 4.46 mil/uL (4.20-5.00); WBC 6.8 thou/uL (4.0-11.0)
[2020-08-09 06:10] LABS: CREATININE 0.5 mg/dL (0.6-1.3); POTASSIUM 3.4 mmol/L (3.5-5.1)
[2020-08-09 07:44] VITALS: BP 167/69
[2020-08-09 12:19] LABS: CALCIUM 7.8 mg/dL (8.5-10.1); CREATININE 0.6 mg/dL (0.6-1.3); POTASSIUM 3.5 mmol/L (3.5-5.1)
[2020-08-09 12:27] VITALS: BP 152/66
[2020-08-09 14:04] VITALS: BP 152/66
[2020-08-09 15:17] VITALS: BP 152/66
== END 2020-08-09 15:15 | disposition home or self-care (01) ==
LOC: M.ERS 08:59 → M.2W 14:15 → M.TBA-ER 14:15 → M.2W 14:15
PROVIDERS: Internal Medicine; Nurse Practitioner Family; ADMIT Internal Medicine; ATTEND Internal Medicine
DX: E87.1 Hypo-osmolality and hyponatremia (principal); R63.0 Anorexia; R11.0 Nausea; Z20.822 Contact with and (suspected) exposure to COVID-19; R63.4 Abnormal weight loss; E87.6 Hypokalemia; K59.00 Constipation, unspecified; E87.8 Other disorders of electrolyte and fluid balance, not elsewhere classified; I10 Essential (primary) hypertension; F17.210 Nicotine dependence, cigarettes, uncomplicated; Z79.899 Other long term (current) drug therapy; Z85.3 Personal history of malignant neoplasm of breast

== ENCOUNTER → 2020-08-24 | Outpatient (CLI) | payer MEDICARE, OTHER ==
[~2020-08-24] MED LIST changes: +CELEXA 20 MG TA20 MG PO; +OMEPRAZOLE 20 M20 M1 PO
== END ==
LOC: M.RAD 12:40
PROVIDERS: ATTEND Internal Medicine Hematology & Oncology
DX: Z12.31 Encounter for screening mammogram for malignant neoplasm of breast (principal)